=== PATIENT | male | born 1990 | race Caucasian/White ===

== ENCOUNTER 2019-05-17 16:50 | Emergency (ER) | payer SELFPAY ==
--- NOTE | 2019-05-17 17:04 | ER Document Report ---
ED Medical Screen (RME) - General Chief Complaint: Psych Problem Stated Complaint: PSYCH EVAL Time Seen by Provider: 05/17/19 17:00 Mode of Arrival: Wheelchair Information source: Patient Notes: 28-year-old male presented to ED for alcohol and Xanax heavy use for the last 6 years. He was in the [employer] and was asked to leave due to his intoxication. Mother states that he has been kicked out of most of the bars in the area. Patient is slurring his words at this time. I have greeted and performed a rapid initial assessment of this patient. A comprehensive ED assessment and evaluation of the patient, analysis of test results and completion of medical decision making process will be conducted by an additional ED providers. - Related Data Allergies/Adverse Reactions: amoxicillin trihydrate [From Augmentin] Allergy (Severe, Verified 01/13/14 16:59) hives,rash Potassium Clavulanate * [From Augmentin] Allergy (Severe, Verified 01/13/14 16:59) hives,rash Past Medical History - Past Medical History Cardiac Medical History: Denies: Hx Coronary Artery Disease, Hx Heart Attack, Hx Hypertension Pulmonary Medical History: Denies: Hx Asthma, Hx Bronchitis, Hx COPD, Hx Pneumonia Neurological Medical History: Denies: Hx Cerebrovascular Accident, Hx Seizures Musculoskeltal Medical History: Denies Hx Arthritis Past Surgical History: Denies: Hx Pacemaker - Immunizations Hx Diphtheria, Pertussis, Tetanus Vaccination: No - unsure Physical Exam - Vital signs Vitals: Temp Pulse Resp BP Pulse Ox 97.8 F 129 H 16 147/95 H 96 05/17/19 16:50 05/17/19 16:50 05/17/19 16:50 05/17/19 16:50 05/17/19 16:50 Course - Vital Signs Vital signs: Temp Pulse Resp BP Pulse Ox 97.8 F 129 H 16 147/95 H 96 05/17/19 16:50 05/17/19 16:50 05/17/19 16:50 05/17/19 16:50 05/17/19 16:50
[2019-05-17] MEDS ORDERED: NORMAL SALINE 1000 ML 1,000 ML IV ONE (17:40)
--- NOTE | 2019-05-17 17:49 | ER Document Report ---
ED Psych Disorder / Suicide - General Mode of Arrival: Wheelchair TRAVEL OUTSIDE OF THE [place] IN LAST 30 DAYS: No <ELIZABETH MCGRATH - Last Filed: 05/17/19 20:34> <RICKY SARMIENTO - Last Filed: 05/18/19 15:11> <DRAKE PARDO - Last Filed: 05/18/19 15:23> - General Chief Complaint: Psych Problem Stated Complaint: PSYCH EVAL Time Seen by Provider: 05/17/19 17:00 Primary Care Provider: [facility] [Outside] - Follow up as needed Notes: Patient is a 28-year-old male who presents to the emergency department with a chief complaint of alcohol use. Patient reports he came here voluntarily and was brought by his sister and mother. Patient reports he has had a heavy use of Xanax and alcohol for the past 6 years. Patient reports he has never been to detox or rehab for his alcohol use. Patient denies suicidal thoughts or michele icidal thoughts. Patient reports he did take 1.5 mg of Xanax earlier today. Patient admits to smoking marijuana occasionally. Patient reports he had about 6 beers today. Patient reports his last drink was around 1630 this afternoon. Patient states he would like help with detox. Mother reports that the patient drinks an estimated 20 beers and/or 1/5 of liquor per day. She reports this is been present since he turned 21 at least. She states that today he was kicked out of [employer] due to his intoxication. She reports that he does go out to the bars and nightly and always ends up with some types of bruising or injury. (ELIZABETH MCGRATH) - Related Data Allergies/Adverse Reactions: amoxicillin trihydrate [From Augmentin] Allergy (Severe, Verified 01/13/14 16:59) hives,rash Potassium Clavulanate * [From Augmentin] Allergy (Severe, Verified 01/13/14 16:59) hives,rash Past Medical History - General Information source: Patient - Social History Smoking Status: Current Every Day Smoker Frequency of alcohol use: Heavy Drug Abuse: Marijuana, Other - Xanax use. Lives with: Alone Family History: None Patient has suicidal ideation: No Patient has homicidal ideation: No - Past Medical History Cardiac Medical History: Reports: None Denies: Hx Coronary Artery Disease, Hx Heart Attack, Hx Hypertension Pulmonary Medical History: Reports: None Denies: Hx Asthma, Hx Bronchitis, Hx COPD, Hx Pneumonia EENT Medical History: Reports: None Neurological Medical History: Reports: None. Denies: Hx Cerebrovascular Accident, Hx Seizures Endocrine Medical History: Reports: None Renal/ Medical History: Reports: None Malignancy Medical History: Reports None GI Medical History: Reports: Hx Gastroesophageal Reflux Disease Musculoskeletal Medical History: Reports None, Denies Hx Arthritis Skin Medical History: Reports None Psychiatric Medical History: Reports: Hx Bipolar Disorder Traumatic Medical History: Reports: None Infectious Medical History: Reports: None Surgical Hx: Negative Past Surgical History: Denies: Hx Pacemaker - Immunizations Hx Diphtheria, Pertussis, Tetanus Vaccination: No - unsure <ALCIDESELIZABETH - Last Filed: 05/17/19 20:34> Review of Systems - Review of Systems Constitutional: No symptoms reported EENT: No symptoms reported Cardiovascular: No symptoms reported Respiratory: No symptoms reported Gastrointestinal: No symptoms reported Genitourinary: No symptoms reported Male Genitourinary: No symptoms reported Musculoskeletal: See HPI Skin: See HPI Hematologic/Lymphatic: No symptoms reported Neurological/Psychological: No symptoms reported <ALCIDESELIZABETH - Last Filed: 05/17/19 20:34> Physical Exam - Vital signs Interpretation: Tachycardic <MARLY MCGRATHECCA - Last Filed: 05/17/19 20:34> - Vital signs Vitals: Temp Pulse Resp BP Pulse Ox 97.8 F 129 H 16 147/95 H 96 05/17/19 16:50 05/17/19 16:50 05/17/19 16:50 05/17/19 16:50 05/17/19 16:50 - Notes Notes: GENERAL: Inotixcated, slurred speech, well-nourished and in no acute distress. HEAD: Atraumatic, normocephalic. EYES: Pupils equal round and reactive to light, extraocular movements intact, sclera anicteric, conjunctiva are normal. ENT: Nares patent, oropharynx clear without exudates. Moist mucous membranes. NECK: Normal range of motion, supple without lymphadenopathy or JVD. LUNGS: Breath sounds clear to auscultation bilaterally and equal. No wheezes rales or rhonchi. HEART: Tachycardiac rate with a regular rhythm without murmurs, rubs or gallops. ABDOMEN: Soft, nontender, normoactive bowel sounds. No guarding, no rebound. No masses appreciated. BACK: No cervical, thoracic, lumbar midline tenderness. No saddle anesthesia, normal distal neurovascular exam. There is a 5 cm linear abrasion noted to the patient's right side. This is surrounded by bruising in various stages of healing. GENITOURINARY: Deferred. EXTREMITIES: Normal range of motion, no pitting or edema. No clubbing or cyanosis. Patient does have a deformity to the right fourth digit (reports that this is an old injury). Abrasion noted to the left elbow. Patient has full range of motion of the left elbow joint, strong flexion and extension. Patient has strong bilateral airline hostess. NEUROLOGICAL: Cranial nerves II through XII grossly intact. Slurred speech. PSYCH: Normal mood, normal affect. SKIN: Warm, Dry, normal turgor, no rashes or lesions noted. (ELIZABETH MCGRATH) Course - Laboratory Result Diagrams: 05/17/19 17:25 05/17/19 17:25 <ELIZABETH MCGRATH - Last Filed: 05/17/19 20:34> - Laboratory Result Diagrams: 05/17/19 17:25 05/17/19 17:25 <RICKY SARMIENTO - Last Filed: 05/18/19 15:11> - Laboratory Result Diagrams: 05/17/19 17:25 05/17/19 17:25 <DRAKE PARDO - Last Filed: 05/18/19 15:23> - Vital Signs Vital signs: Temp Pulse Resp BP Pulse Ox 98.2 F 107 H 18 150/89 H 100 05/18/19 12:56 05/18/19 12:56 05/18/19 01:02 05/18/19 12:56 05/18/19 12:56 - Laboratory Laboratory results interpreted by wv: 05/17/19 05/17/19 17:25 17:25 RBC 4.23 L MCV 100 H MCH 34.1 H RDW 14.5 H Sodium 146.5 H Glucose 111 H AST 89 H Total Protein 8.8 H Salicylates < 1.0 L Acetaminophen < 10 L Serum Alcohol 421 H* Patient does have an elevated serum alcohol 421. Patient's AST is elevated of 89, which is to be expected from his alcohol intake. Patient is not a leukocytosis, anemia or significant alteration in his electrolytes. Patient positive for benzodiazepines. Laboratory 05/17/19 05/17/19 05/17/19 17:25 17:25 17:25 WBC 6.2 RBC 4.23 L Hgb 14.4 Hct 42.3 MCV 100 H MCH 34.1 H MCHC 34.1 RDW 14.5 H Plt Count 261 Lymph % (Auto) 41.1 [place] % (Auto) 6.5 Eos % (Auto) 1.1 Baso % (Auto) 1.1 Absolute Neuts (auto) 3.1 Absolute Lymphs (auto) 2.5 Absolute Monos (auto) 0.4 Absolute Eos (auto) 0.1 Absolute Basos (auto) 0.1 Seg Neutrophils % 50.2 Sodium 146.5 H Potassium 4.1 Chloride 104 Carbon Dioxide 28 Anion Gap 15 BUN 7 Creatinine 0.65 Est GFR ( Amer) > 60 Est GFR (MDRD) Non-Af > 60 Glucose 111 H Calcium 9.4 Total Bilirubin 0.4 Direct Bilirubin 0.1 Neonat Total Bilirubin Not Reportable Neonat Direct Bilirubin Not Reportable Neonat Indirect Bili Not Reportable AST 89 H ALT 54 Alkaline Phosphatase 76 Total Protein 8.8 H Albumin 5.0 Urine Color STRAW Urine Appearance CLEAR Urine pH 6.0 Ur Specific [place] 1.004 Urine Protein NEGATIVE Urine Glucose (UA) NEGATIVE Urine Ketones NEGATIVE Urine Blood NEGATIVE Urine Nitrite NEGATIVE Urine Bilirubin NEGATIVE Urine Urobilinogen NEGATIVE Ur Leukocyte Esterase NEGATIVE Urine Mucus (Auto) RARE Urine Ascorbic Acid NEGATIVE Salicylates < 1.0 L Urine Opiates Screen Urine Methadone Screen Acetaminophen < 10 L Ur Barbiturates Screen Ur Phencyclidine Scrn Ur Amphetamines Screen U Benzodiazepines Scrn Urine Cocaine Screen U Marijuana (THC) Screen Serum Alcohol 421 H* 05/17/19 17:25 WBC RBC Hgb Hct MCV MCH MCHC RDW Plt Count Lymph % (Auto) [place] % (Auto) Eos % (Auto) Baso % (Auto) Absolute Neuts (auto) Absolute Lymphs (auto) Absolute Monos (auto) Absolute Eos (auto) Absolute Basos (auto) Seg Neutrophils % Sodium Potassium Chloride Carbon Dioxide Anion Gap BUN Creatinine Est GFR ( Amer) Est GFR (MDRD) Non-Af Glucose Calcium Total Bilirubin Direct Bilirubin Neonat Total Bilirubin Neonat Direct Bilirubin Neonat Indirect Bili AST ALT Alkaline Phosphatase Total Protein Albumin Urine Color Urine Appearance Urine pH Ur Specific [place] Urine Protein Urine Glucose (UA) Urine Ketones Urine Blood Urine Nitrite Urine Bilirubin Urine Urobilinogen Ur Leukocyte Esterase Urine Mucus (Auto) Urine Ascorbic Acid Salicylates Urine Opiates Screen NEGATIVE Urine Methadone Screen NEGATIVE Acetaminophen Ur Barbiturates Screen NEGATIVE Ur Phencyclidine Scrn NEGATIVE Ur Amphetamines Screen NEGATIVE U Benzodiazepines Scrn UNCONFIRMED POSITIVE Urine Cocaine Screen NEGATIVE U Marijuana (THC) Screen NEGATIVE Serum Alcohol (ELIZABETH MCGRATH) - EKG Interpretation by Me Additional EKG results interpreted by me: 05/17/19 17:47 Patient's EKG shows a sinus tachycardia with a rate of 114, NV interval is 140, QT 312 QTc 430. Patient has normal axis deviation without any ST segment changes in consecutive leads. (ELIZABETH MCGRATH) Discharge <ELIZABETH MCGRATH - Last Filed: 05/17/19 20:34> <RICKY SARMIENTO - Last Filed: 05/18/19 15:11> <DRAKE PARDO - Last Filed: 05/18/19 15:23> - Discharge Clinical Impression: Alcohol abuse, Benzodiazepine abuse Condition: Stable Disposition: HOME, SELF-CARE Additional Instructions: You have been evaluated both medical and behavioral health teams and have been deemed appropriate for discharge. You have declined assistance in obtaining a bed in a detox facility. You are highly encouraged to follow-up with substance abuse treatment and have been provided local resource list of area detox facilit ies and mobile crisis contact information. ACUTE ALCOHOL INTOXICATION and ALCOHOL ABUSE: Your evaluation revealed very high levels of alcohol. You can from drinking a large amount of alcohol rapidly! Further, there's the risk of falls, traffic accidents, and fights. A high portion (about 50 percent) of the serious injuries seen in hospital emergency rooms are caused by alcohol. Alcohol overdosage is usually due to an underlying emotional or psychiatric problem. You may benefit from counselling. If "binge" drinking is an ongoing problem for you, or if you drink ANY AMOUNT of alcohol EVERY day, you most likely have a tendency to alcoholism. You should avoid alcohol totally. We can refer you for treatment. Persons with alcohol problems are often also prone to other addictions -- you should discuss any use of medications or drugs with the doctor. You should be watched at home for the next several hours by someone who has not been drinking. Get extra fluids for the next 24 hours. Call the doctor if there is repeated vomiting, increasing headache, decreasing level of alertness, or any other worsening. CHRONIC ALCOHOLISM and ALCOHOL ABUSE: Your evaluation reveals evidence of chronic alcoholism, an addiction to alcohol. The tendency to alcoholism may be inherited. Chronic use of alcohol weakens muscles, causes fatty deposits in the liver, damages the stomach, makes you more prone to infections, and can cause defects in unborn children. In the long run, brain atrophy and cirrhosis of the liver result. You are also at greater risk for certain types of cancer, such as cancer of the mouth, throat, stomach, and liver. Counselling services are available to help you. In-hospital treatment prog max often help. Support groups such as Alcoholics Anonymous can be very useful in beating this addiction. Your physician can make a referral for you. As alcoholics often are prone to other addictions, you should discuss your use of any other medications with the doctor. ALCOHOL WITHDRAWAL: Your symptoms are caused by alcohol withdrawal. After a period of frequent drinking, the brain and body are changed by the alcohol. When you quit or reduce your drinking, the nervous system becomes unstable. Withdrawal symptoms can start a few hours after your last drink, but sometimes don't begin until a couple of days later. Symptoms can include shakiness, sweating, insomnia, nausea, vomiting, fearfulness, hallucinations, and seizures. In addition to the acute effects of alcohol withdrawal, we often have to deal with the medical effects of alcoholism. These problems often include dehydration, stomach irritation, intestinal bleeding, low blood sugar, liver d isease, and pancreas inflammation. Treatment for alcohol withdrawal includes mild sedatives, vitamins, and fluids. You need to be with someone who can help if symptoms become severe. Many patients can withdraw at home. Admission to the hospital or a detox facility may be necessary if withdrawal symptoms are severe and uncontrollable. Abstaining from alcohol is the only effective long-term treatment. If you start drinking again, you will not be able to control yourself after the first d rink. Treatment programs are available. In addition, many alcoholics benefit from Alcoholics Anonymous or other support groups available through your counselor or presybeterian director of graduate medical education. AL-ANON and ALA-TEEN are support groups for friends and family members of an alcoholic. Go to the emergency room if you develop persistent vomiting, severe abdominal pain, fever, shortness of breath, hallucinations, uncontrollable tremors, or seizures. NARCOTIC / OPIOD ABUSE: Narcotics and opiods are pain-relieving drugs that are often abused. They are addicting. Narcotics cause euphoria, but it often takes increasing amounts to "feel good" and avoid withdrawal symptoms. Overdose of narcotics causes small pupils, coma, and decreased breathing. It's a common cause of . Purity of street narcotics is unpredictable. Injection of narcotics is risky for abscesses, endocarditis (heart infection), pneumonia, and AIDS. Withdrawal from narcotics causes goose bumps, watery mouth, sweating, nasal congestion, muscle aches, abdominal cramps, vomiting, and diarrhea. There's often restlessness and confusion. Treatment programs are available, but you must make the decision to quit. Medication (such as clonidine) can be prescribed to control the symptoms of with drawal. OVERDOSE / INGESTION: You have taken more medication than you should have. After your evaluation and care, it is felt that your overdose is not likely to be harmful or of any significant consequences to you and you are being discharged. In the future, you should be careful not to take more medications than what is prescribed for you. Although your overdose does not seem to be of any danger to you at this time, if you develop any unusual or unexpected symptoms after your discharge, you should return to the Emergency Department immediately for re-evaluation. INSTRUCTIONS FOR HOME CARE FOLLOWING DRUG OVERDOSAGE: The doctor feels it's safe for you to go home. You will need to be observed. If charcoal and a laxative was given to you, expect some loose black stools soon. Take no medications unless approved by a physician, including alcohol. If drowsy, lie on your stomach or side for sleeping to avoid aspiration if vomiting occurs. Take only liquids by mouth until there is no more nausea. FOR THE OBSERVER: Observe the patient for the next 24 hours and call or go to the hospital if any of the following are noted: prolonged or repeated vomiting, difficulty in arousing, convulsions (seizures or fits), fever, persistent cough, breathing that is too slow or too rapid, or confused or bizarre behavior. If a counselling visit has been arranged, make sure the patient attends. C all the physician or poison control if you have questions. FOLLOW-UP CARE: If you have been referred to a physician for follow-up care, call the physicians office for an appointment as you were instructed or within the next two days. If you experience worsening or a significant change in your symptoms, notify the physician immediately or return to the Emergency Department at any time for re-evaluation. Prescriptions: Chlordiazepoxide HCl [Librium 25 mg Capsule] 1 cap PO QID #60 capsule Referrals: [facility] [Outside] - Follow up as needed
[2019-05-17 18:04] LABS: ABSOLUTE BASOPHILS # (AUTO) 0.1 10^3/uL (0.0-0.2); ABSOLUTE EOSINOPHILS # (AUTO) 0.1 10^3/uL (0.0-0.6); ABSOLUTE LYMPHOCYTES (AUTO) 2.5 10^3/uL (0.5-4.7); ABSOLUTE MONOCYTES (AUTO) 0.4 10^3/uL (0.1-1.4); ABSOLUTE NEUT (AUTO) 3.1 10^3/uL (1.7-8.2); BASOPHILS % (AUTO) 1.1 % (0-2); EOSINOPHILS % (AUTO) 1.1 % (0-6); HEMATOCRIT 42.3 % (37.9-51.0); HEMOGLOBIN 14.4 g/dL (13.5-17.0); LYMPHOCYTES % (AUTO) 41.1 % (13-45); MEAN CORPUSCULAR HEMOGLOBIN 34.1 pg (27.0-33.4); MEAN CORPUSCULAR HGB CONC 34.1 g/dL (32.0-36.0); MEAN CORPUSCULAR VOLUME 100 fl (80-97); MONOCYTES % (AUTO) 6.5 % (3-13); PLATELET COUNT 261 10^3/uL (150-450); RED BLOOD COUNT 4.23 10^6/uL (4.35-5.55); RED CELL DISTRIBUTION WIDTH 14.5 % (11.5-14.0); SEGMENTED NEUTROPHILS % (AUTO) 50.2 % (42-78); TOTAL CELLS COUNTED % (AUTO) 100 %; WHITE BLOOD COUNT 6.2 10^3/uL (4.0-10.5)
[2019-05-17 18:06] LABS: APPEARANCE,URINE CLEAR; BILIRUBIN,URINE NEGATIVE (NEGATIVE); COLOR,URINE STRAW; GLUCOSE, URINE NEGATIVE (NEGATIVE); KETONES,URINE NEGATIVE (NEGATIVE); LEUKOCYTE ESTERASE,URINE NEGATIVE (NEGATIVE); NITRITE,URINE NEGATIVE (NEGATIVE); PROTEIN,URINE NEGATIVE (NEGATIVE); URINE SPECIFIC GRAVITY 1.004; UROBILINOGEN,URINE NEGATIVE mg/dL (<2.0)
[2019-05-17 18:18] LABS: ALKALINE PHOSPHATASE 76 U/L (38-126); ANION GAP 15 (5-19); ASPARTATE AMINO TRANSFERASE 89 U/L (17-59); BILIRUBIN,DIRECT 0.1 mg/dL (0.0-0.4); BILIRUBIN,TOTAL 0.4 mg/dL (0.2-1.3); BLOOD UREA NITROGEN 7 mg/dL (7-20); CALCIUM 9.4 mg/dL (8.4-10.2); CARBON DIOXIDE 28 mmol/L (22-30); CHLORIDE 104 mmol/L (98-107); GLUCOSE 111 mg/dL (75-110); POTASSIUM 4.1 mmol/L (3.6-5.0); TOTAL PROTEIN 8.8 g/dL (6.3-8.2)
[2019-05-17 18:27] LABS: URINE AMPHETAMINES SCREEN NEGATIVE; URINE BARBITURATES SCREEN NEGATIVE; URINE BENZODIAZEPINES SCREEN UNCONFIRMED POSITIVE; URINE COCAINE SCREEN NEGATIVE; URINE MARIJUANA (THC) SCREEN NEGATIVE; URINE METHADONE SCREEN NEGATIVE; URINE PHENCYCLIDINE SCREEN NEGATIVE
[2019-05-17 18:35] LABS: ACETAMINOPHEN < 10 ug/mL (10-30); SALICYLATE < 1.0 mg/dL (2.0-20.0)
[2019-05-17 18:39] LABS: ALCOHOL 421 mg/dL (NONE DETECTED)
[2019-05-18] MEDS ORDERED: FAMOTIDINE 20 MG TABLET PO ONE ×2 (00:51→09:47)
[2019-05-18] MEDS ORDERED: LORAZEPAM 1 MG TABLET PO ONE ×2 (01:16→10:15)
--- NOTE | 2019-05-18 01:17 | ER Document Report ---
Doctor's Note Notes: 05/18/19 01:16 Was asked to evaluate the patient as he is having trouble sleeping, started the feel tremulous and mildly agitated. He does use daily benzodiazepines and a significant amount of alcohol, he is at increased risk for withdrawal and withdrawal seizures. We will proceed with 2 mg of oral Ativan.
--- NOTE | 2019-05-18 02:16 | EKG REPORT ---
SEVERITY:- OTHERWISE NORMAL ECG - SINUS TACHYCARDIA : Confirmed by: Alec Mojica 18-May-2019 02:15:42
[2019-05-18 13:13] VITALS: BP 150/89
--- NOTE | 2019-05-18 15:24 | ER Document Report ---
Doctor's Note Notes: Chart reviewed, patient evaluated, pending psychiatric disposition. Patient is calm, cooperative, denies any suicidal or homicidal ideations.
== END 2019-05-18 15:30 | disposition home or self-care (01) ==
LOC: ER 16:50
DX: F17.200 Nicotine dependence, unspecified, uncomplicated (principal); F10.10 Alcohol abuse, uncomplicated; F19.90 Other psychoactive substance use, unspecified, uncomplicated; R00.0 Tachycardia, unspecified; Z88.0 Allergy status to penicillin
CPT/HCPCS: 93005; 36415; 80307 ×4; 85025; 80053; 81001; 93010; J7030; 96360; 99284